=== PATIENT | female | born 1980 | race Caucasian/White ===

== ENCOUNTER 2020-12-01 15:09 | Inpatient (IN) | payer OTHER ==
[~2020-12-01] VITALS: Ht 160 cm; Wt 79.4 kg
--- NOTE | ~2020-12-01 | OP ---
[facility] [address] [place] [address] OPERATIVE REPORT Name: CLARISSA SHERWOODJASKARAN PERRY Room: [address] IN M.R.#: [id number] Admission: 12/01/20 Attend Phys: Keshawn Stewart Discharge: Date of : 76 Report #: [id number] THIS REPORT FOR: cc: KENIA - Magali family physician/PCP KENIA - No family physician/PCP Keshawn Stewart MD ~ DATE OF SERVICE: 12/02/2020 PREOPERATIVE DIAGNOSIS: Acute appendicitis. POSTOPERATIVE DIAGNOSIS: Acute appendicitis. OPERATION: Laparoscopic appendectomy. SURGEON: Keshawn Stewart MD. ANESTHESIA: General. ESTIMATED BLOOD LOSS: Minimal. SPECIMEN: Appendix. DESCRIPTION OF PROCEDURE: After informed consent was obtained, the patient was brought to the operating room and placed supine. SCDs were placed and working, preoperative antibiotics were administered, general anesthesia was induced. The abdomen was prepped and draped in the usual sterile fashion. A 10 mm incision was made below the umbilicus. Fascia was incised and a trocar was placed. Pneumoperitoneum was established. Right upper quadrant and left lower quadrant 5 mm trocars were placed. The appendix was grasped and retracted anteriorly. The mesoappendix was ligated using the LigaSure device. There was good hemostasis. The base of the appendix was then stapled off with a OPAL blue load stapler. It was placed into an Endopouch and removed. There was good hemostasis. The appendix was removed. The fascia was then closed with a [id number] 0 Vicryl. Skin was closed with 4-0 Monocryl. Incisions were sealed with Steri-Strips. COMPLICATIONS: None. DISPOSITION: The patient was taken to recovery in satisfactory condition. By: [id number] Stewart MD /nt
[2020-12-01 15:17] VITALS: BP 135/84
[2020-12-01] MEDS ORDERED: CELEXA10 MG PO (15:20)
[2020-12-01] MEDS ORDERED: GEMFIBROZIL 60600 MG PO (15:21)
[2020-12-01] MEDS ORDERED: WELLBUTRIN 75 M75 M1 PO (15:21)
[2020-12-01 15:54] LABS: ABSOLUTE BASOPHILS 0.1 thou/uL (0.0-0.2); ABSOLUTE EOSINOPHILS 0.1 thou/uL (0.0-0.7); ABSOLUTE LYMPHOCYTES 1.5 thou/uL (0.8-5.3); ABSOLUTE MONOCYTES 0.5 thou/uL (0.0-1.2); ABSOLUTE NEUTROPHILS 12.2 thou/uL (1.6-8.1); BASOPHILS 0.6 %; EOSINOPHILS 0.7 %; HEMATOCRIT 41.5 % (37.0-47.0); HEMOGLOBIN 14.1 gm/dL (12.0-15.0); LYMPHOCYTES 10.3 %; MCH 30.4 pg (26.0-34.0); MCV 89.4 fL (80.0-100.0); MONOCYTES 3.5 %; MPV 8.1 fl. (7.2-11.1); NUCLEATED RBCS 0 /100WBC; PLATELET COUNT* 335 thou/uL (150-400); POLYS 84.9 %; RBC 4.65 mil/uL (4.20-5.00); WBC 14.3 thou/uL (4.0-11.0)
[2020-12-01 16:02] LABS: CALCIUM 9.3 mg/dL (8.5-10.1); CREATININE 0.9 mg/dL (0.6-1.3); POTASSIUM 4.2 mmol/L (3.5-5.1)
[2020-12-01 16:06] LABS: ALBUMIN 3.8 g/dL (3.4-5.0); TOTAL BILIRUBIN 0.4 mg/dL (<0.1-1.0); TOTAL PROTEIN 8.1 g/dL (6.4-8.2)
[2020-12-01 17:04] LABS: URINE BILIRUBIN NEGATIVE (Negative); URINE BLOOD 1+ (Negative); URINE CLARITY CLOUDY; URINE COLOR YELLOW; URINE GLUCOSE-RANDOM NEGATIVE (Negative); URINE KETONES NEGATIVE (Negative); URINE LEUKOCYTES-REFLEX NEGATIVE (Negative); URINE NITRITE-REFLEX NEGATIVE (Negative); URINE PROTEIN NEGATIVE (Negative); URINE SPECIFIC GRAVITY >= 1.030 (1.005-1.030); URINE UROBILINOGEN 0.2 E.U./dl (0.2-1.0)
[2020-12-01 17:23] LABS: AMORPHOUS URATES Moderate /LPF (None Seen); BACTERIA-REFLEX 1-9 Few /HPF (None Seen); CASTS None Seen /LPF (None Seen); SQUAMOUS 4-10 Moderate /LPF (0-3); URINE RBC 0-2 Rare /HPF (0-2); URINE WBC-REFLEX 0-5 Rare /HPF (0-5)
[2020-12-01 19:51] VITALS: BP 135/84
[2020-12-01 19:58] VITALS: BP 137/80
[2020-12-02 14:07] VITALS: BP 115/61
[2020-12-02 16:00] VITALS: BP 116/64
[2020-12-02 20:00] VITALS: BP 117/55
[2020-12-03 00:15] VITALS: BP 112/67
[2020-12-03 04:34] VITALS: BP 111/63
[2020-12-03 09:00] VITALS: BP 144/66
[2020-12-03 11:36] VITALS: BP 147/85
[2020-12-03] MEDS ORDERED: HYDROCODON-ACE1 EAC7 PO (17:20)
[2020-12-03] MEDS ORDERED: MIRALAX119 GM PO (17:21)
[2020-12-03 18:00] VITALS: BP 147/85
[2020-12-03 18:02] VITALS: BP 147/85
--- NOTE | 2020-12-04 18:06 | PATH ---
[address] [address] PATHOLOGY RPT PROCEDURE Name: DEREK NORTH Room: [address] IN M.R.#: [id number] Admission: 12/01/20 Date of : 76 Discharge: 12/03/20 Report #: [id number] Path Case #: [id number] [facility] Accession Number: [id number] . 01 Material submitted: . appendix - APPENDIX . 01 Clinical history: . APPENDECTOMY APPENDICITIS SAME PREOP . 02 Diagnosis: Appendix: - Acute appendicitis, periappendicitis and serositis. (XANDER:melyssa; 12/04/2020) S 12/04/2020 [facility]8 Local . 02 Electronically signed: . Woody Shoemaker MD, Pathologist NPI- [id number] . 01 Gross description: . The specimen is received in formalin, labeled "Derek North", "appendix". Received is an elongated, intact veriform appendix measuring 5.5 cm in length and up to 1.0 cm in diameter. The proximal margin is stapled. The serosal surface displays a wrinkled, slightly roughened, pale redding-calloway appearance with various pale redding adhesions and a thin layer of pale white, fibrinopurulent exudate. No perforations are identified. Sectioning reveals a patent lumen is free of fecaliths and mass lesions. Hot Plate [employer] Press Offbearer sections are submitted in cassette A1.(SNA; 12/03/2020) CHRISTIANO/ANTOHNY 12/03/2020 0859 Local . 02 Pathologist provided ICD-10: K35.80, K65.8 . 02 CPT . 891746 Specimen Comment: A courtesy copy of this report has been sent to [phone] Specimen Comment: Report sent to Performed at: [address], [place], [place] [id number] MD Naeem Tobar MD Phone: [phone] Performed at: [facility] [address], [place], [place] [id number] MD Woody Shoemaker MD Phone: [phone]
== END 2020-12-03 18:28 | disposition home or self-care (01) | DRG 343 ==
LOC: M.ERS 15:09 → M.TBA-ER 17:27 → M.ORTHSURG 17:27
PROVIDERS: Physician Assistant; ADMIT Surgery; ATTEND Surgery
PROC: 0DTJ4ZZ Resection of Appendix, Percutaneous Endoscopic Approach (ICD-10-PCS; principal; 2020-12-02)
DX: K35.80 Unspecified acute appendicitis (principal); Z88.0 Allergy status to penicillin; Z20.822 Contact with and (suspected) exposure to COVID-19; F17.210 Nicotine dependence, cigarettes, uncomplicated; Z79.899 Other long term (current) drug therapy